=== PATIENT | male | born 1955 | race Asian ===

== ENCOUNTER 2020-05-18 20:44 | Inpatient (IN) | payer SELFPAY ==
[2020-05-18] MEDS ORDERED: methylPREDNISolone Sod Succinate 125 MG/2 ML INJ IV ONE (22:35)
[2020-05-18] MEDS ORDERED: ASPIRIN 81 MG TAB CHEW PO ONE (22:35)
[2020-05-18] MEDS ORDERED: ALBUTEROL 2.5 MG/3 ML NEBU IH ONE (22:35)
[2020-05-18] MEDS ORDERED: IPRATROPIUM/ALBUTEROL SULFATE 3 ML AMPUL.NEB IH ONE (22:35)
[2020-05-18] MEDS ORDERED: dexAMETHasone 20 MG/5 ML VIAL IV ONE (23:18)
[2020-05-18 23:33] LABS: Basophils # (Auto) 0.1 K/mm3 (0.0-0.1); Basophils % (Auto) 0.4 % (0.0-1.8); Eosinophils # (Auto) 0.1 K/mm3 (0.0-0.4); Eosinophils % (Auto) 0.4 % (0.0-4.3); Hematocrit 36.8 % (35.5-45.6); Hemoglobin 12.2 gm/dl (11.8-15.2); Lymphocytes # (Auto) 1.4 K/mm3 (1.2-5.4); Lymphocytes % (Auto) 11.4 % (13.4-35.0); Mean Corpuscular HGB Conc 33 % (32-34); Mean Corpuscular Volume 79 fl (84-94); Monocytes # (Auto) 0.9 K/mm3 (0.0-0.8); Monocytes % (Auto) 7.2 % (0.0-7.3); Platelet Count 234 K/mm3 (140-440); Red Blood Count 4.66 M/mm3 (3.65-5.03); Red Cell Distribution Width 15.9 % (13.2-15.2)
[2020-05-18 23:38] LABS: Alanine Aminotransferase 43 units/L (7-56); Albumin 3.9 g/dL (3.9-5); BUN/Creatinine Ratio 16; Blood Urea Nitrogen 23 mg/dL (9-20); Hemolysis Index 4
[2020-05-18] MEDS ORDERED: dexAMETHasone 4 MG/ML VIAL IV ONE (23:40)
[2020-05-18] MEDS ORDERED: AZITHROMYCIN/NS 500 MG/250 ML 500 MG/250 ML BAG IV ONE (23:42)
[2020-05-18] MEDS ORDERED: cefTRIAXone/NS 2 GM/100 ML 2 GM/100 ML BAG IV ONE (23:42)
--- NOTE | 2020-05-18 23:42 | XRay Report ---
CHEST 1 VIEW INDICATION / CLINICAL INFORMATION: dyspnea. COMPARISON: None available. FINDINGS: SUPPORT DEVICES: None. HEART / MEDIASTINUM: No significant abnormality. LUNGS / PLEURA: Mild scattered pulmonary opacities are present bilaterally, slightly more prevalent i n the left lung and right lung base. No pleural effusion. No pneumothorax. ADDITIONAL FINDINGS: No significant additional findings. IMPRESSION: 1. Scattered bilateral pulmonary opacities worrisome for multifocal viral pneumonia. Please correlate clinically. Signer Name: Christie Lane MD Signed: 05/18/2020 11:38 PM Workstation Name: [id number]
[2020-05-18 23:48] LABS: INR 1.16 (0.87-1.13)
--- NOTE | 2020-05-18 23:48 | Emergency Department Report ---
ED Shortness of Breath HPI - General Chief Complaint: Dyspnea/Respdistress Stated Complaint: SOB Time Seen by Provider: 05/18/20 23:15 Source: patient Mode of arrival: Ambulatory Limitations: No Limitations - History of Present Illness Initial Comments: 65-year-old male with a past medical history hypertension, diabetes, elevated cholesterol presents to the hospital with complaints of shortness of breath for last 2 days. Patient denies cough or fever or known Covid exposure. He also denies loss of sense of taste or smell. He did take a Covid test 2 days ago but does not yet have the results. Room air saturation in triage 87%. He denies chronic pulmonary or cardiac disease - Related Data Allergies Allergy/AdvReac Type Severity Reaction Status Date / Time No Known Allergies Allergy Unverified 05/18/20 22:38 ED Review of Systems ROS: Stated complaint: SOB Other details as noted in HPI Comment: All other systems reviewed and negative ED Past Medical Hx - Past Medical History Previous Medical History?: Yes Hx Hypertension: Yes Hx Diabetes: Yes Additional medical history: High Cholesterol - Surgical History Past Surgical History?: No - Social History Smoking Status: Never Smoker Substance Use Type: None ED Physical Exam - General Limitations: No Limitations - Other Other exam information: General: No acute distress Head: Atraumatic Eyes: normal appearance ENT: Moist mucous membranes Neck: Normal appearance, no midline tenderness Chest: Mild bilateral crackles sound right greater than left, no tachypnea or accessory muscle use CV: Mild tachycardia regular rhythm Abdomen: Soft, normal bowel sounds, nontender, nondistended, no rebound or guarding Back: Normal inspection Extremity: Normal inspection, full range of motion Neuro: Alert O x 3, no facial asymmetry, speech clear, no gross motor sensory deficit Psych: Appropriate behavior Skin: No rash ED Course Vital Signs 05/18/20 22:30 Temperature 98.2 F Pulse Rate 105 H Respiratory 16 Rate Blood Pressure 153/61 O2 Sat by Pulse 87 Oximetry ED Medical Decision Making - Lab Data Result diagrams: 05/18/20 22:41 05/18/20 22:41 Lab Results 05/18/20 05/18/20 05/18/20 Range/Units 22:41 22:41 22:41 WBC 12.2 H (4.5-11.0) K/mm3 RBC 4.66 (3.65-5.03) M/mm3 Hgb 12.2 (11.8-15.2) gm/dl Hct 36.8 (35.5-45.6) % MCV 79 L (84-94) fl MCH 26 L (28-32) pg MCHC 33 (32-34) % RDW 15.9 H (13.2-15.2) % Plt Count 234 (140-440) K/mm3 Lymph % (Auto) 11.4 L (13.4-35.0) % [place] % (Auto) 7.2 (0.0-7.3) % Eos % (Auto) 0.4 (0.0-4.3) % Baso % (Auto) 0.4 (0.0-1.8) % Lymph # (Auto) 1.4 (1.2-5.4) K/mm3 [place] # (Auto) 0.9 H (0.0-0.8) K/mm3 Eos # (Auto) 0.1 (0.0-0.4) K/mm3 Baso # (Auto) 0.1 (0.0-0.1) K/mm3 Seg Neutrophils % 80.6 H (40.0-70.0) % Seg Neutrophils # 9.8 H (1.8-7.7) K/mm3 PT 14.6 (12.2-14.9) Sec. INR 1.16 H (0.87-1.13) APTT 36.5 (24.2-36.6) Sec. Sodium 136 L (137-145) mmol/L Potassium 5.0 (3.6-5.0) mmol/L Chloride 96.1 L (98-107) mmol/L Carbon Dioxide 23 (22-30) mmol/L Anion Gap 22 mmol/L BUN 23 H (9-20) mg/dL Creatinine 1.4 H (0.8-1.3) mg/dL Estimated GFR 51 ml/min BUN/Creatinine Ratio 16 % Glucose 109 H (75-100) mg/dL Calcium 9.0 (8.4-10.2) mg/dL Total Bilirubin 2.50 H (0.1-1.2) mg/dL AST 53 H (5-40) units/L ALT 43 (7-56) units/L Alkaline Phosphatase 88 (35-129) units/L Troponin T < 0.010 (0.00-0.029) ng/mL NT-Pro-B Natriuret Pep 38.27 (0-900) pg/mL Total Protein 7.2 (6.3-8.2) g/dL Albumin 3.9 (3.9-5) g/dL Albumin/Globulin Ratio 1.2 % - EKG Data -: EKG Interpreted by Me EKG shows normal: sinus rhythm, ST-T waves (No STEMI) Rate: tachycardia (107) - Radiology Data Radiology results: report reviewed CHEST 1 VIEW INDICATION / CLINICAL INFORMATION: dyspnea. COMPARISON: None available. FINDINGS: SUPPORT DEVICES: None. HEART / MEDIASTINUM: No significant abnormality. LUNGS / PLEURA: Mild scattered pulmonary opacities are present bilaterally, slightly more prevalent in the left lung and right lung base. No pleural effusion. No pneumothorax. ADDITIONAL FINDINGS: No significant additional findings. IMPRESSION: 1. Scattered bilateral pulmonary opacities worrisome for multifocal viral pneumonia. Please correlate clinically. - Medical Decision Making 65-year-old male presents to the hospital with hypoxia and bilateral pulmonary opacities. Patient treated for community-acquired pneumonia as well and was suspected Covid. She received Rocephin, azithromycin, Decadron 10 mg. Nasal cannula supplemental oxygen for hypoxia. provided ID consult ordered. Hospitalist to admit Critical Care Time: Yes Critical care time in (mins) excluding proc time.: 35 Critical care attestation.: If time is entered above; I have spent that time in minutes in the direct care of this critically ill patient, excluding procedure time. ED Disposition Clinical Impression: Bilateral pneumonia, Suspected COVID-19 virus infection, Hypoxia, Respiratory failure Disposition: OP ADMIT IP TO THIS HOSP Is pt being admited?: Yes Condition: Stable Instructions: Bacterial Pneumonia (ED) Time of Disposition: 00:25 (DR Alvarez/hospitalist)
[2020-05-18 23:49] LABS: Partial Thromboplastin Time 36.5 Sec. (24.2-36.6)
[2020-05-19 00:40] LABS: C-Reactive Protein 13.4 mg/dL (0.00-1.30)
--- NOTE | 2020-05-19 00:45 | History and Physical Report ---
History of Present Illness Date of examination: 05/19/20 Chief complaint: Shortness of breath Respiratory distress History of present illness: 65-year-old male with a past medical history hypertension, diabetes, high cholesterol cholesterol was brought to the emergency room because of shortness of breath for last 2 days. Patient denies any coughing or fever. Patient also denies loss of sense of taste or smell. He did take a Covid test 2 days ago but does not yet have the results. Room air saturation in triage 87%. He denies chronic pulmonary or cardiac disease Past History Past Medical History: diabetes, hypertension Medications and Allergies Allergies Allergy/AdvReac Type Severity Reaction Status Date / Time No Known Allergies Allergy Unverified 05/18/20 22:38 Active Meds: Active Medications Dexamethasone (Dexamethasone 4 Mg/Ml Vial) 6 mg IV Q24H JOSUE Famotidine (Famotidine 20 Mg Tab) 20 mg PO BID JOSUE Heparin Sodium (Porcine) (Heparin 5,000 Unit/1 Ml Vial) 5,000 unit SUB-Q Q8HR JOSUE Azithromycin (Zithromax/Ns) 500 mg in 250 mls @ 250 mls/hr IV Q24H JOSUE; Protocol Review of Systems Constitutional: fatigue Cardiovascular: shortness of breath Respiratory: shortness of breath Exam - Constitutional Vitals: Temp Pulse Resp BP Pulse Ox 99 F 95 H 23 128/63 95 05/19/20 00:29 05/19/20 00:29 05/19/20 00:29 05/19/20 00:29 05/19/20 00:29 General appearance: Present: mild distress - EENT Eyes: Present: PERRL ENT: hearing intact, clear oral mucosa - Neck Neck: Present: supple, normal ROM - Respiratory Respiratory effort: normal, labored Respiratory: bilateral: CTA, diminished - Cardiovascular Heart Sounds: Present: S1 & S2. Absent: rub, click - Extremities Extremities: pulses symmetrical, No edema Peripheral Pulses: within normal limits - Abdominal General gastrointestinal: Present: soft, non-tender, non-distended, normal bowel sounds Male genitourinary: Present: normal - Integumentary Integumentary: Present: clear, warm, dry - Musculoskeletal Musculoskeletal: gait normal, strength equal bilaterally - Psychiatric Psychiatric: appropriate mood/affect, intact judgment & insight - Neurologic Neurologic: CNII-XII intact, moves all extremities HEART Score - HEART Score Troponin: Troponin T < 0.010 ng/mL (0.00-0.029) 05/18/20 22:41 Results - Labs CBC & Chem 7: 05/18/20 22:41 05/18/20 23:52 Labs: Laboratory Last Values WBC 12.2 K/mm3 (4.5-11.0) H 05/18/20 22:41 RBC 4.66 M/mm3 (3.65-5.03) 05/18/20 22:41 Hgb 12.2 gm/dl (11.8-15.2) 05/18/20 22:41 Hct 36.8 % (35.5-45.6) 05/18/20 22:41 MCV 79 fl (84-94) L 05/18/20 22:41 MCH 26 pg (28-32) L 05/18/20 22:41 MCHC 33 % (32-34) 05/18/20 22:41 RDW 15.9 % (13.2-15.2) H 05/18/20 22:41 Plt Count 234 K/mm3 (140-440) 05/18/20 22:41 Lymph % (Auto) 11.4 % (13.4-35.0) L 05/18/20 22:41 [place] % (Auto) 7.2 % (0.0-7.3) 05/18/20 22:41 Eos % (Auto) 0.4 % (0.0-4.3) 05/18/20 22:41 Baso % (Auto) 0.4 % (0.0-1.8) 05/18/20 22:41 Lymph # (Auto) 1.4 K/mm3 (1.2-5.4) 05/18/20 22:41 [place] # (Auto) 0.9 K/mm3 (0.0-0.8) H 05/18/20 22:41 Eos # (Auto) 0.1 K/mm3 (0.0-0.4) 05/18/20 22:41 Baso # (Auto) 0.1 K/mm3 (0.0-0.1) 05/18/20 22:41 Seg Neutrophils % 80.6 % (40.0-70.0) H 05/18/20 22:41 Seg Neutrophils # 9.8 K/mm3 (1.8-7.7) H 05/18/20 22:41 PT 14.6 Sec. (12.2-14.9) 05/18/20 22:41 INR 1.16 (0.87-1.13) H 05/18/20 22:41 APTT 36.5 Sec. (24.2-36.6) 05/18/20 22:41 D-Dimer 856.48 ng/mlDDU (0-234) H 05/18/20 23:52 Sodium 136 mmol/L (137-145) L 05/18/20 22:41 Potassium 5.0 mmol/L (3.6-5.0) 05/18/20 22:41 Chloride 96.1 mmol/L (98-107) L 05/18/20 22:41 Carbon Dioxide 23 mmol/L (22-30) 05/18/20 22:41 Anion Gap 22 mmol/L 05/18/20 22:41 BUN 23 mg/dL (9-20) H 05/18/20 22:41 Creatinine 1.4 mg/dL (0.8-1.3) H 05/18/20 22:41 Estimated GFR 51 ml/min 05/18/20 22:41 BUN/Creatinine Ratio 16 % 05/18/20 22:41 Glucose 109 mg/dL (75-100) H 05/18/20 23:52 Calcium 9.0 mg/dL (8.4-10.2) 05/18/20 22:41 Total Bilirubin 2.50 mg/dL (0.1-1.2) H 05/18/20 22:41 AST 53 units/L (5-40) H 05/18/20 22:41 ALT 43 units/L (7-56) 05/18/20 22:41 Alkaline Phosphatase 88 units/L (35-129) 05/18/20 22:41 Lactate Dehydrogenase 333 units/L (91-180) H 05/18/20 23:52 Troponin T < 0.010 ng/mL (0.00-0.029) 05/18/20 22:41 C-Reactive Protein 13.40 mg/dL (0.00-1.30) H 05/18/20 23:52 NT-Pro-B Natriuret Pep 38.27 pg/mL (0-900) 05/18/20 22:41 Total Protein 7.2 g/dL (6.3-8.2) 05/18/20 22:41 Albumin 3.9 g/dL (3.9-5) 05/18/20 22:41 Albumin/Globulin Ratio 1.2 % 05/18/20 22:41 - Imaging and Cardiology Chest x-ray: image reviewed Villalobos/IV: IV Catheter Type [Right INT / Saline Lock Antecubital] Assessment and Plan - Patient Problems (1) Bilateral pneumonia Current Visit: Yes Status: Acute Plan to address problem: Admit the patient to the medical telemetry. Put the patient on pneumonia pathway. Oxygen by nasal cannula 3 L/min. DuoNeb by nebulizer every 4 hours as needed. Decadron 6 mg IV daily. Rocephin 1 g IV daily. Zithromax 500 mg IV daily. Follow the Covid inflammatory markers. Blood cultures sputum culture. We also consult infectious disease for evaluation of remdesivir. Recheck CBC BMP in the morning. (2) Hypoxia Current Visit: Yes Status: Acute Plan to address problem: Oxygen by nasal cannula 3 L/min. DuoNeb by nebulizer every 4 hours as needed. Decadron 6 mg IV daily. Rocephin 1 g IV daily. Zithromax 500 mg IV daily. Follow the Covid inflammatory markers. Blood cultures sputum culture. (3) Suspected COVID-19 virus infection Current Visit: Yes Status: Acute Plan to address problem: Oxygen by nasal cannula 3 L/min. DuoNeb by nebulizer every 4 hours as needed. Decadron 6 mg IV daily. Rocephin 1 g IV daily. Zithromax 500 mg IV daily. Follow the Covid inflammatory markers. Blood cultures sputum culture. We also consult infectious disease for evaluation of remdesivir. Recheck CBC BMP in the morning.
[2020-05-19] MEDS ORDERED: DEXTROSE 50% IN WATER (25GM) 50 ML SYRINGE IV PRN ×2 (00:50→13:00)
[2020-05-19] MEDS: HEPARIN 5,000 UNIT/1 ML VIAL SUB-Q SCH ×4 (00:53→21:41)
[2020-05-19] MEDS: FAMOTIDINE 20 MG TAB PO SCH ×4 (01:37→21:40)
[2020-05-19] MEDS ORDERED: INSULIN LISPRO 100 UNIT/ML SUB-Q ONE (08:00)
[2020-05-19] MEDS: INSULIN LISPRO 100 UNIT/ML VIAL 3 mL SUB-Q SCH ×4 (08:14→23:26)
[2020-05-19 11:44] LABS: Hematocrit 37.8 % (35.5-45.6); Hemoglobin 12.2 gm/dl (11.8-15.2); Mean Corpuscular HGB Conc 32 % (32-34); Mean Corpuscular Volume 81 fl (84-94); Platelet Count 214 K/mm3 (140-440); Red Blood Count 4.69 M/mm3 (3.65-5.03)
--- NOTE | 2020-05-19 12:01 | Consultation ---
History of Present Illness - Reason for Consult Consult date: 05/19/20 - History of Present Illness 65-year-old man past medical history hypertension, diabetes, high cholesterol presented to the hospital complaining of shortness of breath. This began approximately 2 days prior to admission has been progressive in onset. He denies any other symptoms. He was tested for Covid as an outpatient, however those tests are still pending. He was found to be hypoxic to 87% on room air in the emergency room. Afebrile with a white count 12.12. Procalcitonin 0.41, GFR is 51. Ferritin is normal while CRP is elevated. Blood cultures currently pending. Imaging personally reviewed: Chest x-ray: Scattered bilateral pulmonary opacities Review of systems: Deferred due to PPE conservation strategy. Past History Past Medical History: diabetes, hypertension Medications and Allergies Allergies Allergy/AdvReac Type Severity Reaction Status Date / Time No Known Allergies Allergy Verified 05/19/20 00:44 Home Medications Medication Instructions Recorded Confirmed Last Taken Type Glimepiride [Amaryl] 2 mg PO QDAY 05/19/20 05/19/20 Unknown History Metformin HCl [metFORMIN] 1,000 mg PO BID 05/19/20 05/19/20 Unknown History Simvastatin 40 mg PO QDAY 05/19/20 05/19/20 Unknown History amLODIPine [Norvasc] 10 mg PO DAILY 05/19/20 05/19/20 Unknown History hydroCHLOROthiazide 12.5 mg PO QDAY 05/19/20 05/19/20 Unknown History [Hydrochlorothiazide] lisinopriL [Zestril TAB] 40 mg PO QDAY 05/19/20 05/19/20 Unknown History Active Meds: Active Medications Dexamethasone (Dexamethasone 4 Mg/Ml Vial) 6 mg IV Q24H [facility] Dextrose (Dextrose 50% In Water (25gm) 50 Ml Syringe) 50 ml IV Q30MIN PRN; Protocol PRN Reason: Hypoglycemia Famotidine (Famotidine 20 Mg Tab) 20 mg PO BID [facility] Last Admin: 05/19/20 09:36 Dose: Not Given Documented by: Heparin Sodium (Porcine) (Heparin 5,000 Unit/1 Ml Vial) 5,000 unit SUB-Q Q8HR JOSUE Stop: 05/22/20 23:59 Last Admin: 05/19/20 05:43 Dose: Not Given Documented by: Azithromycin (Zithromax/Ns) 500 mg in 250 mls @ 250 mls/hr IV Q24H JOSUE; Protocol Ceftriaxone Sodium (Rocephin/Ns 2 Gm/100 Ml) 2 gm in 100 mls @ 200 mls/hr IV Q24H JOSUE; Protocol Insulin Human Lispro (Insulin Lispro 100 Unit/Ml Vial 3 Ml) 0 unit SUB-Q ACHS JOSUE; Protocol Last Admin: 05/19/20 08:14 Dose: 4 unit Documented by: Physical Examination - Physical Exam Narrative exam: Physical exam deferred due to PPE conservation strategy. Please refer to primary team's note. - Constitutional Vitals: Vital Signs Temp Pulse Resp BP Pulse Ox 99 F 64 28 H 113/62 96 05/19/20 00:29 05/19/20 06:00 05/19/20 06:00 05/19/20 06:00 05/19/20 06:00 Temperature -Last 24 Hours Temperature 99 F Temperature 98.2 F Results - Labs CBC & Chem 7: 05/18/20 22:41 05/18/20 23:52 Labs: Abnormal lab results 05/18/20 05/18/20 05/18/20 Range/Units 22:41 22:41 22:41 WBC 12.2 H (4.5-11.0) K/mm3 MCV 79 L (84-94) fl MCH 26 L (28-32) pg RDW 15.9 H (13.2-15.2) % Lymph % (Auto) 11.4 L (13.4-35.0) % [place] # (Auto) 0.9 H (0.0-0.8) K/mm3 Seg Neutrophils % 80.6 H (40.0-70.0) % Seg Neutrophils # 9.8 H (1.8-7.7) K/mm3 INR 1.16 H (0.87-1.13) D-Dimer (0-234) ng/mlDDU Sodium 136 L (137-145) mmol/L Chloride 96.1 L (98-107) mmol/L BUN 23 H (9-20) mg/dL Creatinine 1.4 H (0.8-1.3) mg/dL Glucose 109 H (75-100) mg/dL POC Glucose (70-105) mg/dL Total Bilirubin 2.50 H (0.1-1.2) mg/dL AST 53 H (5-40) units/L Lactate Dehydrogenase (91-180) units/L C-Reactive Protein (0.00-1.30) mg/dL 05/18/20 05/18/20 05/19/20 Range/Units 23:52 23:52 08:02 WBC (4.5-11.0) K/mm3 MCV (84-94) fl MCH (28-32) pg RDW (13.2-15.2) % Lymph % (Auto) (13.4-35.0) % [place] # (Auto) (0.0-0.8) K/mm3 Seg Neutrophils % (40.0-70.0) % Seg Neutrophils # (1.8-7.7) K/mm3 INR (0.87-1.13) D-Dimer 856.48 H (0-234) ng/mlDDU Sodium (137-145) mmol/L Chloride (98-107) mmol/L BUN (9-20) mg/dL Creatinine (0.8-1.3) mg/dL Glucose 109 H (75-100) mg/dL POC Glucose 252 H (70-105) mg/dL Total Bilirubin (0.1-1.2) mg/dL AST (5-40) units/L Lactate Dehydrogenase 333 H (91-180) units/L C-Reactive Protein 13.40 H (0.00-1.30) mg/dL 05/19/20 Range/Units 11:17 WBC (4.5-11.0) K/mm3 MCV (84-94) fl MCH (28-32) pg RDW (13.2-15.2) % Lymph % (Auto) (13.4-35.0) % [place] # (Auto) (0.0-0.8) K/mm3 Seg Neutrophils % (40.0-70.0) % Seg Neutrophils # (1.8-7.7) K/mm3 INR (0.87-1.13) D-Dimer (0-234) ng/mlDDU Sodium (137-145) mmol/L Chloride (98-107) mmol/L BUN (9-20) mg/dL Creatinine (0.8-1.3) mg/dL Glucose (75-100) mg/dL POC Glucose 334 H (70-105) mg/dL Total Bilirubin (0.1-1.2) mg/dL AST (5-40) units/L Lactate Dehydrogenase (91-180) units/L C-Reactive Protein (0.00-1.30) mg/dL Assessment and Plan Cultures: Blood culture pending Covid pending A/P: 65-year-old man past medical history hypertension, diabetes, high cholesterol #Bilateral pneumonia/Covid PUI: Awaiting test results. Inflammatory markers are currently elevated. D-dimer is high. Procalcitonin slightly elevated. #SINA: Renally dose medications. Unclear baseline. #Diabetes: tight glycemic control for best outcomes. Recs: -Follow-up Covid test results -If becomes hypoxic recommend dexamethasone. -If COVID-19 testing positive and requiring oxygen supplementation recommend starting remdesivir -Follow renal function -Consider lower extremity Dopplers due to elevated D-dimer -Anticoagulation per protocol Thank you for the consult, we will continue to follow. Dr. Aggarwal taking over tomorrow MD [facility] O: [phone] F: [phone]
[2020-05-19 12:10] LABS: BUN/Creatinine Ratio 23; Blood Urea Nitrogen 27 mg/dL (9-20); Calcium 8.8 mg/dL (8.4-10.2); Hemolysis Index 7
[2020-05-19 12:40] LABS: Band Neutrophils # (Manual) 0.1 K/mm3; Total Cells Counted 100
[2020-05-19 12:41] LABS: Large Platelets Few; Platelet Estimate Consistent w Auto; RBC Morphology Normal
[2020-05-19] MEDS ORDERED: SODIUM POLYSTYRENE 15 GM/60 ML ORAL LIQD PO ONE (14:00)
[2020-05-19] MEDS ORDERED: ACETAMINOPHEN 325 MG TAB PO PRN ×2 (17:39→18:49)
[2020-05-19] MEDS: AZITHROMYCIN/NS 500 MG/250 ML 500 MG/250 ML BAG IV SCH (21:39)
[2020-05-19] MEDS: dexAMETHasone 4 MG/ML VIAL IV SCH (21:40)
[2020-05-19] MEDS: INSULIN GLARGINE 100 UNITS/ML SUB-Q SCH (23:26)
[2020-05-19] MEDS: cefTRIAXone/NS 2 GM/100 ML 2 GM/100 ML BAG IV SCH (23:32)
[2020-05-20] MEDS: HEPARIN 5,000 UNIT/1 ML VIAL SUB-Q SCH ×3 (05:46→21:00)
[2020-05-20 06:30] LABS: Basophils % (Auto) 0.3 % (0.0-1.8); Eosinophils % (Auto) 0.1 % (0.0-4.3); Hematocrit 34.2 % (35.5-45.6); Hemoglobin 11.2 gm/dl (11.8-15.2); Lymphocytes # (Auto) 0.6 K/mm3 (1.2-5.4); Lymphocytes % (Auto) 6.3 % (13.4-35.0); Mean Corpuscular HGB Conc 33 % (32-34); Mean Corpuscular Volume 80 fl (84-94); Monocytes # (Auto) 0.6 K/mm3 (0.0-0.8); Monocytes % (Auto) 6.3 % (0.0-7.3); Platelet Count 232 K/mm3 (140-440); Red Blood Count 4.28 M/mm3 (3.65-5.03)
[2020-05-20 06:45] LABS: BUN/Creatinine Ratio 29; Blood Urea Nitrogen 35 mg/dL (9-20); Calcium 8.2 mg/dL (8.4-10.2); Hemolysis Index 5
--- NOTE | 2020-05-20 09:24 | Progress Note ---
Assessment and Plan Assessment and plan: Acute hypoxic respiratory failure -Patient is on oxygen support COVID-19 infection -ID was consulted and patient is on dexamethasone Diabetes mellitus with hyperglycemia -Basal and sliding scale insulin, ADA diet, Accu-Chek Elevated D-dimer -Patient is on anticoagulation based on hospital protocol -We will do bilateral lower extremity Doppler dispopsition; continue inpatient care. We will do 6-minute walk tomorrow History Interval history: Patient was seen and evaluated this morning Patient is on 3 L of oxygen Patient become short of breath with minimal exertion Hospitalist Physical - Physical exam Narrative exam: Not in cardiopulmonary distress. The patient appeared well nourished and normally developed. Vital signs as documented. Head exam is unremarkable. No scleral icterus . Neck is without jugular venous distension, thyromegaly, or carotid bruits. Lungs are clear to auscultation. Cardiac exam reveals regular rate and Rhythm. Abdominal exam reveals normal bowel sounds, nontender, no organomegaly. Extremities are nonedematous and both femoral and pedal pulses are normal. POSITION CLASSIFIER: Alert and oriented 3. No focal weakness. - Constitutional Vitals: Temp Pulse Resp BP Pulse Ox 98.0 F 83 18 116/68 90 05/20/20 04:29 05/20/20 04:29 05/20/20 04:29 05/20/20 04:29 05/20/20 04:29 General appearance: Present: mild distress HEART Score - HEART Score Troponin: Troponin T < 0.010 ng/mL (0.00-0.029) 05/18/20 22:41 Results - Labs CBC & Chem 7: 05/20/20 05:19 05/20/20 05:19 Labs: Laboratory Last Values WBC 9.3 K/mm3 (4.5-11.0) 05/20/20 05:19 RBC 4.28 M/mm3 (3.65-5.03) 05/20/20 05:19 Hgb 11.2 gm/dl (11.8-15.2) L 05/20/20 05:19 Hct 34.2 % (35.5-45.6) L 05/20/20 05:19 MCV 80 fl (84-94) L 05/20/20 05:19 MCH 26 pg (28-32) L 05/20/20 05:19 MCHC 33 % (32-34) 05/20/20 05:19 RDW 16.0 % (13.2-15.2) H 05/20/20 05:19 Plt Count 232 K/mm3 (140-440) 05/20/20 05:19 Lymph % (Auto) 6.3 % (13.4-35.0) L 05/20/20 05:19 [place] % (Auto) 6.3 % (0.0-7.3) 05/20/20 05:19 Eos % (Auto) 0.1 % (0.0-4.3) 05/20/20 05:19 Baso % (Auto) 0.3 % (0.0-1.8) 05/20/20 05:19 Lymph # (Auto) 0.6 K/mm3 (1.2-5.4) L 05/20/20 05:19 [place] # (Auto) 0.6 K/mm3 (0.0-0.8) 05/20/20 05:19 Eos # (Auto) 0.0 K/mm3 (0.0-0.4) 05/20/20 05:19 Baso # (Auto) 0.0 K/mm3 (0.0-0.1) 05/20/20 05:19 Add Manual Diff Complete 05/19/20 10:51 Total Counted 100 05/19/20 10:51 Seg Neutrophils % 87.0 % (40.0-70.0) H 05/20/20 05:19 Seg Neuts % (Manual) 95.0 % (40.0-70.0) H 05/19/20 10:51 Band Neutrophils % 1.0 % 05/19/20 10:51 Lymphocytes % (Manual) 3.0 % (13.4-35.0) L 05/19/20 10:51 Monocytes % (Manual) 1.0 % (0.0-7.3) 05/19/20 10:51 Nucleated RBC % Not Reportable 05/19/20 10:51 Seg Neutrophils # 8.1 K/mm3 (1.8-7.7) H 05/20/20 05:19 Seg Neutrophils # Man 10.2 K/mm3 (1.8-7.7) H 05/19/20 10:51 Band Neutrophils # 0.1 K/mm3 05/19/20 10:51 Lymphocytes # (Manual) 0.3 K/mm3 (1.2-5.4) L 05/19/20 10:51 Abs React Lymphs (Man) 0.0 K/mm3 05/19/20 10:51 Monocytes # (Manual) 0.1 K/mm3 (0.0-0.8) 05/19/20 10:51 Eosinophils # (Manual) 0.0 K/mm3 (0.0-0.4) 05/19/20 10:51 Basophils # (Manual) 0.0 K/mm3 (0.0-0.1) 05/19/20 10:51 Metamyelocytes # 0.0 K/mm3 05/19/20 10:51 Myelocytes # 0.0 K/mm3 05/19/20 10:51 Promyelocytes # 0.0 K/mm3 05/19/20 10:51 Blast Cells # 0.0 K/mm3 05/19/20 10:51 WBC Morphology Not Reportable 05/19/20 10:51 Hypersegmented Neuts Not Reportable 05/19/20 10:51 Hyposegmented Neuts Not Reportable 05/19/20 10:51 Hypogranular Neuts Not Reportable 05/19/20 10:51 Smudge Cells Not Reportable 05/19/20 10:51 Toxic Granulation Not Reportable 05/19/20 10:51 Toxic Vacuolation Not Reportable 05/19/20 10:51 Dohle Bodies Not Reportable 05/19/20 10:51 Pelger-Huet Anomaly Not Reportable 05/19/20 10:51 Anabela Rods Not Reportable 05/19/20 10:51 Platelet Estimate Consistent w auto 05/19/20 10:51 Clumped Platelets Not Reportable 05/19/20 10:51 Plt Clumps, EDTA Not Reportable 05/19/20 10:51 Large Platelets Few 05/19/20 10:51 Giant Platelets Not Reportable 05/19/20 10:51 Platelet Satelliting Not Reportable 05/19/20 10:51 Plt Morphology Comment Not Reportable 05/19/20 10:51 RBC Morphology Normal 05/19/20 10:51 Dimorphic RBCs Not Reportable 05/19/20 10:51 Polychromasia Not Reportable 05/19/20 10:51 Hypochromasia Not Reportable 05/19/20 10:51 Poikilocytosis Not Reportable 05/19/20 10:51 Anisocytosis Not Reportable 05/19/20 10:51 Microcytosis Not Reportable 05/19/20 10:51 Macrocytosis Not Reportable 05/19/20 10:51 Spherocytes Not Reportable 05/19/20 10:51 Pappenheimer Bodies Not Reportable 05/19/20 10:51 Sickle Cells Not Reportable 05/19/20 10:51 Target Cells Not Reportable 05/19/20 10:51 Tear Drop Cells Not Reportable 05/19/20 10:51 Ovalocytes Not Reportable 05/19/20 10:51 Helmet Cells Not Reportable 05/19/20 10:51 [place] Bodies Not Reportable 05/19/20 10:51 [place] Rings Not Reportable 05/19/20 10:51 [place] Cells Not Reportable 05/19/20 10:51 Bite Cells Not Reportable 05/19/20 10:51 Crenated Cell Not Reportable 05/19/20 10:51 Elliptocytes Not Reportable 05/19/20 10:51 Acanthocytes (Spur) Not Reportable 05/19/20 10:51 Rouleaux Not Reportable 05/19/20 10:51 Hemoglobin C Crystals Not Reportable 05/19/20 10:51 Schistocytes Not Reportable 05/19/20 10:51 Malaria parasites Not Reportable 05/19/20 10:51 Luis Bodies Not Reportable 05/19/20 10:51 Hem Pathologist Commnt No 05/19/20 10:51 PT 14.6 Sec. (12.2-14.9) 05/18/20 22:41 INR 1.16 (0.87-1.13) H 05/18/20 22:41 APTT 36.5 Sec. (24.2-36.6) 05/18/20 22:41 D-Dimer 856.48 ng/mlDDU (0-234) H 05/18/20 23:52 Sodium 134 mmol/L (137-145) L 05/20/20 05:19 Potassium 5.1 mmol/L (3.6-5.0) H 05/20/20 05:19 Chloride 99.5 mmol/L (98-107) 05/20/20 05:19 Carbon Dioxide 21 mmol/L (22-30) L 05/20/20 05:19 Anion Gap 19 mmol/L 05/20/20 05:19 BUN 35 mg/dL (9-20) H 05/20/20 05:19 Creatinine 1.2 mg/dL (0.8-1.3) 05/20/20 05:19 Estimated GFR > 60 ml/min 05/20/20 05:19 BUN/Creatinine Ratio 29 % 05/20/20 05:19 Glucose 262 mg/dL (75-100) H 05/20/20 05:19 POC Glucose 155 mg/dL (70-105) H 05/19/20 22:02 Hemoglobin A1c 8.0 % (4-6) H 05/19/20 10:51 Calcium 8.2 mg/dL (8.4-10.2) L 05/20/20 05:19 Ferritin 162.1 ng/mL (30.0-300.0) 05/18/20 23:52 Total Bilirubin 2.50 mg/dL (0.1-1.2) H 05/18/20 22:41 AST 53 units/L (5-40) H 05/18/20 22:41 ALT 43 units/L (7-56) 05/18/20 22:41 Alkaline Phosphatase 88 units/L (35-129) 05/18/20 22:41 Lactate Dehydrogenase 333 units/L (91-180) H 05/18/20 23:52 Troponin T < 0.010 ng/mL (0.00-0.029) 05/18/20 22:41 C-Reactive Protein 13.40 mg/dL (0.00-1.30) H 05/18/20 23:52 NT-Pro-B Natriuret Pep 38.27 pg/mL (0-900) 05/18/20 22:41 Total Protein 7.2 g/dL (6.3-8.2) 05/18/20 22:41 Albumin 3.9 g/dL (3.9-5) 05/18/20 22:41 Albumin/Globulin Ratio 1.2 % 05/18/20 22:41 Procalcitonin 0.41 ng/mL (<0.15) 05/18/20 23:52 Coronavirus (PCR) Positive (Negative) A 05/19/20 Unknown Microbiology: Microbiology 05/18/20 23:47 Peripheral/Venous Blood Culture - Preliminary NO GROWTH AFTER 24 HOURS 05/18/20 23:52 Peripheral/Venous Blood Culture - Preliminary NO GROWTH AFTER 24 HOURS Villalobos/IV: Voiding Method Urinal IV Catheter Type [Right INT / Saline Lock Antecubital] Active Medications - Current Medications Current Medications: Generic Name Dose Route Start Last Admin Trade Name Freq PRN Reason Stop Dose Admin Acetaminophen 650 mg 05/19/20 18:49 Acetaminophen 325 Mg Tab PO Q4H PRN Pain MILD(1-3)/Fever >100.5/ZHANG Dexamethasone 6 mg 05/19/20 22:00 05/19/20 21:40 Dexamethasone 4 Mg/Ml Vial IV 05/28/20 22:01 6 mg Q24H JOSUE Administration Dextrose 50 ml 05/19/20 13:00 Dextrose 50% In Water (25gm) 50 Ml Syringe IV Q30MIN PRN Hypoglycemia Protocol Famotidine 20 mg 05/19/20 01:00 05/19/20 21:40 Famotidine 20 Mg Tab PO 20 mg BID JOSUE Administration Heparin Sodium (Porcine) 5,000 unit 05/19/20 00:45 05/20/20 05:46 Heparin 5,000 Unit/1 Ml Vial SUB-Q 05/22/20 23:59 5,000 unit Q8HR JOSUE Administration Azithromycin 500 mg in 250 mls @ 250 mls/hr 05/19/20 22:00 05/19/20 21:39 Zithromax/Ns IV 250 mls/hr Q24H JOSUE Administration Protocol Ceftriaxone Sodium 2 gm in 100 mls @ 200 mls/hr 05/19/20 22:00 05/19/20 23:32 Rocephin/Ns 2 Gm/100 Ml IV 200 mls/hr Q24H JOSUE Administration Protocol Insulin Glargine 10 units 05/19/20 22:00 05/19/20 23:26 Insulin Glargine 100 Units/Ml SUB-Q Not Given QHS [facility] Insulin Human Lispro 0 unit 05/19/20 07:30 05/19/20 23:26 Insulin Lispro 100 Unit/Ml Vial 3 Ml SUB-Q Not Given ACHS [facility] Protocol Nutrition/Malnutrition Assess - Dietary Evaluation Nutrition/Malnutrition Findings: Nutrition Notes Start: 05/19/20 10:17 Freq: Status: Active Protocol: Document 05/19/20 10:17 AB (Rec: 05/19/20 10:19 AB [id number]) Co-Sign 05/19/20 10:17 LP Nutrition Notes Need for Assessment generated from: MD Order,Education Initial or Follow up Brief Note Current Diagnosis Diabetes,Hypertension, Respiratory Failure Other Pertinent Diagnosis COVID-19 PUI, pneumonia Current Diet No diet ordered Subjective/Other Information MD order for diet education. Pt on hold in ED. Nutrition Intervention Follow-Up By: 05/23/20 Additional Comments F/U for full assessment and diet education needs
[2020-05-20] MEDS: INSULIN LISPRO 100 UNIT/ML VIAL 3 mL SUB-Q SCH ×4 (09:44→23:51)
[2020-05-20] MEDS: FAMOTIDINE 20 MG TAB PO SCH ×2 (09:45→21:00)
[2020-05-20] MEDS: dexAMETHasone 4 MG/ML VIAL IV SCH (21:00)
[2020-05-20] MEDS: AZITHROMYCIN/NS 500 MG/250 ML 500 MG/250 ML BAG IV SCH (21:05)
[2020-05-20] MEDS: cefTRIAXone/NS 2 GM/100 ML 2 GM/100 ML BAG IV SCH (21:05)
[2020-05-20] MEDS: INSULIN GLARGINE 100 UNITS/ML SUB-Q SCH (23:50)
[2020-05-21] MEDS: HEPARIN 5,000 UNIT/1 ML VIAL SUB-Q SCH ×3 (05:14→21:11)
[2020-05-21] MEDS: FAMOTIDINE 20 MG TAB PO SCH ×2 (09:06→21:11)
[2020-05-21] MEDS: INSULIN LISPRO 100 UNIT/ML VIAL 3 mL SUB-Q SCH ×4 (09:06→22:47)
--- NOTE | 2020-05-21 09:53 | Progress Note ---
Assessment and Plan Cultures: Blood culture no growth today Covid positive A/P: 65-year-old man past medical history hypertension, diabetes, high cholesterol #Severe COVID-19 pneumonia: Inflammatory markers are currently elevated. D- dimer is high. Procalcitonin slightly elevated. #Acute hypoxia: O2 sats dropped to 88%. #SINA: Renally dose medications. Improving. #Diabetes: tight glycemic control for best outcomes. Recs: -Start remdesivir for 5 days -Continue dexamethasone for 10 days -Other inflammatory markers and repeat procalcitonin today -Follow renal function -Anticoagulation per protocol -Continue ceftriaxone for 5 days, azithromycin for 3 days given elevated procalcitonin however likely secondary to chronic renal failure Shelley Aggarwal MD [facility] ([facility]) Office [phone] Subjective Date of service: 05/21/20 Principal diagnosis: COVID-19 Interval history: Remains sedated on exertion, sats dropped to 88%. Objective - Exam Narrative Exam: Physical exam deferred to minimize COVID-19 transmission during pandemic. ER and internal medicine physical examination notes reviewed. - Constitutional Vitals: Vital Signs Temp Pulse Resp BP Pulse Ox 97.6 F 74 20 134/77 94 05/20/20 22:42 05/21/20 04:53 05/21/20 04:53 05/21/20 04:53 05/21/20 04:53 Temperature -Last 24 Hours Temperature 97.6 F Temperature 97.6 F Temperature 98.5 F - Labs CBC & Chem 7: 05/20/20 05:19 05/20/20 05:19 Labs: Abnormal lab results 05/20/20 05/20/20 05/20/20 Range/Units 12:07 15:48 22:40 POC Glucose 275 H 147 H 170 H (70-105) mg/dL 05/21/20 Range/Units 07:58 POC Glucose 231 H (70-105) mg/dL
[2020-05-21] MEDS ORDERED: REMDESIVIR 200 MG in SODIUM CHLORIDE 0.9% 250ML 250 ML IV ONE (09:54)
[2020-05-21] MEDS ORDERED: REMDESIVIR 100 MG VIAL IV ONE (10:00)
--- NOTE | 2020-05-21 12:22 | Progress Note ---
Assessment and Plan Assessment and plan: Acute hypoxic respiratory failure -Patient is on oxygen support COVID-19 infection -ID was consulted and patient is on dexamethasone remdesivir Diabetes mellitus with hyperglycemia -Basal and sliding scale insulin, ADA diet, Accu-Chek Elevated D-dimer -Patient is on anticoagulation based on hospital protocol -We will do bilateral lower extremity Doppler dispopsition; continue inpatient care. 6-minute walk was done and his oxygen requirement was 4 L. We will keep the patient in the hospital and will check tomorrow. Patient is uninsured and may be difficult to get oxygen. History Interval history: Patient was seen and evaluated this morning Patient is on 4 L of oxygen Patient become short of breath with minimal exertion Hospitalist Physical - Physical exam Narrative exam: Not in cardiopulmonary distress. The patient appeared well nourished and normally developed. Vital signs as documented. Head exam is unremarkable. No scleral icterus . Neck is without jugular venous distension, thyromegaly, or carotid bruits. Lungs are clear to auscultation. Cardiac exam reveals regular rate and Rhythm. Abdominal exam reveals normal bowel sounds, nontender, no organomegaly. Extremities are nonedematous and both femoral and pedal pulses are normal. [employer]: Alert and oriented 3. No focal weakness. - Constitutional Vitals: Temp Pulse Resp BP Pulse Ox 97.6 F 74 20 134/77 96 05/20/20 22:42 05/21/20 04:53 05/21/20 04:53 05/21/20 04:53 05/21/20 10:00 General appearance: Present: mild distress HEART Score - HEART Score Troponin: Troponin T < 0.010 ng/mL (0.00-0.029) 05/18/20 22:41 Results - Labs CBC & Chem 7: 05/20/20 05:19 05/20/20 05:19 Labs: Laboratory Last Values WBC 9.3 K/mm3 (4.5-11.0) 05/20/20 05:19 RBC 4.28 M/mm3 (3.65-5.03) 05/20/20 05:19 Hgb 11.2 gm/dl (11.8-15.2) L 05/20/20 05:19 Hct 34.2 % (35.5-45.6) L 05/20/20 05:19 MCV 80 fl (84-94) L 05/20/20 05:19 MCH 26 pg (28-32) L 05/20/20 05:19 MCHC 33 % (32-34) 05/20/20 05:19 RDW 16.0 % (13.2-15.2) H 05/20/20 05:19 Plt Count 232 K/mm3 (140-440) 05/20/20 05:19 Lymph % (Auto) 6.3 % (13.4-35.0) L 05/20/20 05:19 [place] % (Auto) 6.3 % (0.0-7.3) 05/20/20 05:19 Eos % (Auto) 0.1 % (0.0-4.3) 05/20/20 05:19 Baso % (Auto) 0.3 % (0.0-1.8) 05/20/20 05:19 Lymph # (Auto) 0.6 K/mm3 (1.2-5.4) L 05/20/20 05:19 [place] # (Auto) 0.6 K/mm3 (0.0-0.8) 05/20/20 05:19 Eos # (Auto) 0.0 K/mm3 (0.0-0.4) 05/20/20 05:19 Baso # (Auto) 0.0 K/mm3 (0.0-0.1) 05/20/20 05:19 Add Manual Diff Complete 05/19/20 10:51 Total Counted 100 05/19/20 10:51 Seg Neutrophils % 87.0 % (40.0-70.0) H 05/20/20 05:19 Seg Neuts % (Manual) 95.0 % (40.0-70.0) H 05/19/20 10:51 Band Neutrophils % 1.0 % 05/19/20 10:51 Lymphocytes % (Manual) 3.0 % (13.4-35.0) L 05/19/20 10:51 Monocytes % (Manual) 1.0 % (0.0-7.3) 05/19/20 10:51 Nucleated RBC % Not Reportable 05/19/20 10:51 Seg Neutrophils # 8.1 K/mm3 (1.8-7.7) H 05/20/20 05:19 Seg Neutrophils # Man 10.2 K/mm3 (1.8-7.7) H 05/19/20 10:51 Band Neutrophils # 0.1 K/mm3 05/19/20 10:51 Lymphocytes # (Manual) 0.3 K/mm3 (1.2-5.4) L 05/19/20 10:51 Abs React Lymphs (Man) 0.0 K/mm3 05/19/20 10:51 Monocytes # (Manual) 0.1 K/mm3 (0.0-0.8) 05/19/20 10:51 Eosinophils # (Manual) 0.0 K/mm3 (0.0-0.4) 05/19/20 10:51 Basophils # (Manual) 0.0 K/mm3 (0.0-0.1) 05/19/20 10:51 Metamyelocytes # 0.0 K/mm3 05/19/20 10:51 Myelocytes # 0.0 K/mm3 05/19/20 10:51 Promyelocytes # 0.0 K/mm3 05/19/20 10:51 Blast Cells # 0.0 K/mm3 05/19/20 10:51 WBC Morphology Not Reportable 05/19/20 10:51 Hypersegmented Neuts Not Reportable 05/19/20 10:51 Hyposegmented Neuts Not Reportable 05/19/20 10:51 Hypogranular Neuts Not Reportable 05/19/20 10:51 Smudge Cells Not Reportable 05/19/20 10:51 Toxic Granulation Not Reportable 05/19/20 10:51 Toxic Vacuolation Not Reportable 05/19/20 10:51 Dohle Bodies Not Reportable 05/19/20 10:51 Pelger-Huet Anomaly Not Reportable 05/19/20 10:51 Anabela Rods Not Reportable 05/19/20 10:51 Platelet Estimate Consistent w auto 05/19/20 10:51 Clumped Platelets Not Reportable 05/19/20 10:51 Plt Clumps, EDTA Not Reportable 05/19/20 10:51 Large Platelets Few 05/19/20 10:51 Giant Platelets Not Reportable 05/19/20 10:51 Platelet Satelliting Not Reportable 05/19/20 10:51 Plt Morphology Comment Not Reportable 05/19/20 10:51 RBC Morphology Normal 05/19/20 10:51 Dimorphic RBCs Not Reportable 05/19/20 10:51 Polychromasia Not Reportable 05/19/20 10:51 Hypochromasia Not Reportable 05/19/20 10:51 Poikilocytosis Not Reportable 05/19/20 10:51 Anisocytosis Not Reportable 05/19/20 10:51 Microcytosis Not Reportable 05/19/20 10:51 Macrocytosis Not Reportable 05/19/20 10:51 Spherocytes Not Reportable 05/19/20 10:51 Pappenheimer Bodies Not Reportable 05/19/20 10:51 Sickle Cells Not Reportable 05/19/20 10:51 Target Cells Not Reportable 05/19/20 10:51 Tear Drop Cells Not Reportable 05/19/20 10:51 Ovalocytes Not Reportable 05/19/20 10:51 Helmet Cells Not Reportable 05/19/20 10:51 Crump-[place] Bodies Not Reportable 05/19/20 10:51 [place] Rings Not Reportable 05/19/20 10:51 [place] Cells Not Reportable 05/19/20 10:51 Bite Cells Not Reportable 05/19/20 10:51 Crenated Cell Not Reportable 05/19/20 10:51 Elliptocytes Not Reportable 05/19/20 10:51 Acanthocytes (Spur) Not Reportable 05/19/20 10:51 Rouleaux Not Reportable 05/19/20 10:51 Hemoglobin C Crystals Not Reportable 05/19/20 10:51 Schistocytes Not Reportable 05/19/20 10:51 Malaria parasites Not Reportable 05/19/20 10:51 Luis Bodies Not Reportable 05/19/20 10:51 Hem Pathologist Commnt No 05/19/20 10:51 PT 14.6 Sec. (12.2-14.9) 05/18/20 22:41 INR 1.16 (0.87-1.13) H 05/18/20 22:41 APTT 36.5 Sec. (24.2-36.6) 05/18/20 22:41 D-Dimer 856.48 ng/mlDDU (0-234) H 05/18/20 23:52 Sodium 134 mmol/L (137-145) L 05/20/20 05:19 Potassium 5.1 mmol/L (3.6-5.0) H 05/20/20 05:19 Chloride 99.5 mmol/L (98-107) 05/20/20 05:19 Carbon Dioxide 21 mmol/L (22-30) L 05/20/20 05:19 Anion Gap 19 mmol/L 05/20/20 05:19 BUN 35 mg/dL (9-20) H 05/20/20 05:19 Creatinine 1.2 mg/dL (0.8-1.3) 05/20/20 05:19 Estimated GFR > 60 ml/min 05/20/20 05:19 BUN/Creatinine Ratio 29 % 05/20/20 05:19 Glucose 262 mg/dL (75-100) H 05/20/20 05:19 POC Glucose 213 mg/dL (70-105) H 05/21/20 11:26 Hemoglobin A1c 8.0 % (4-6) H 05/19/20 10:51 Calcium 8.2 mg/dL (8.4-10.2) L 05/20/20 05:19 Ferritin 162.1 ng/mL (30.0-300.0) 05/18/20 23:52 Total Bilirubin 2.50 mg/dL (0.1-1.2) H 05/18/20 22:41 AST 53 units/L (5-40) H 05/18/20 22:41 ALT 43 units/L (7-56) 05/18/20 22:41 Alkaline Phosphatase 88 units/L (35-129) 05/18/20 22:41 Lactate Dehydrogenase 333 units/L (91-180) H 05/18/20 23:52 Troponin T < 0.010 ng/mL (0.00-0.029) 05/18/20 22:41 C-Reactive Protein 13.40 mg/dL (0.00-1.30) H 05/18/20 23:52 NT-Pro-B Natriuret Pep 38.27 pg/mL (0-900) 05/18/20 22:41 Total Protein 7.2 g/dL (6.3-8.2) 05/18/20 22:41 Albumin 3.9 g/dL (3.9-5) 05/18/20 22:41 Albumin/Globulin Ratio 1.2 % 05/18/20 22:41 Procalcitonin 0.41 ng/mL (<0.15) 05/18/20 23:52 Coronavirus (PCR) Positive (Negative) A 05/19/20 Unknown Microbiology: Microbiology 05/18/20 23:47 Peripheral/Venous Blood Culture - Preliminary NO GROWTH AFTER 48 HOURS 05/18/20 23:52 Peripheral/Venous Blood Culture - Preliminary NO GROWTH AFTER 48 HOURS Villalobos/IV: Voiding Method Toilet IV Catheter Type [Right INT / Saline Lock Antecubital] Active Medications - Current Medications Current Medications: Generic Name Dose Route Start Last Admin Trade Name Freq PRN Reason Stop Dose Admin Acetaminophen 650 mg 05/19/20 18:49 Acetaminophen 325 Mg Tab PO Q4H PRN Pain MILD(1-3)/Fever >100.5/ZHANG Dexamethasone 6 mg 05/19/20 22:00 05/20/20 21:00 Dexamethasone 4 Mg/Ml Vial IV 05/28/20 22:01 6 mg Q24H JOSUE Administration Dextrose 50 ml 05/19/20 13:00 Dextrose 50% In Water (25gm) 50 Ml Syringe IV Q30MIN PRN Hypoglycemia Protocol Famotidine 20 mg 05/19/20 01:00 05/21/20 09:06 Famotidine 20 Mg Tab PO 20 mg BID JOSUE Administration Heparin Sodium (Porcine) 5,000 unit 05/19/20 00:45 05/21/20 05:14 Heparin 5,000 Unit/1 Ml Vial SUB-Q 05/22/20 23:59 5,000 unit Q8HR JOSUE Administration Azithromycin 500 mg in 250 mls @ 250 mls/hr 05/19/20 22:00 05/20/20 21:05 Zithromax/Ns IV 250 mls/hr Q24H JOSUE Administration Protocol Ceftriaxone Sodium 2 gm in 100 mls @ 200 mls/hr 05/19/20 22:00 05/20/20 21:05 Rocephin/Ns 2 Gm/100 Ml IV 200 mls/hr Q24H JOSUE Administration Protocol REMDESIVIR 100 mg/ Sodium 250 mls @ 500 mls/hr 05/22/20 21:00 Chloride IV 05/25/20 21:29 Q24HR@2100 JOSUE Insulin Glargine 10 units 05/19/20 22:00 05/20/20 23:50 Insulin Glargine 100 Units/Ml SUB-Q 10 units QHS JOSUE Administration Insulin Human Lispro 0 unit 05/19/20 07:30 05/21/20 11:58 Insulin Lispro 100 Unit/Ml Vial 3 Ml SUB-Q 4 unit ACHS [facility] Administration Protocol Sodium Chloride 50 ml 05/21/20 21:00 Sodium Chloride 0.9% 50 Ml Ivpb IV 05/25/20 21:01 Q24HR@2100 [facility] Nutrition/Malnutrition Assess - Dietary Evaluation Nutrition/Malnutrition Findings: Nutrition Notes Start: 05/19/20 10:17 Freq: Status: Active Protocol: Document 05/19/20 10:17 AB (Rec: 05/19/20 10:19 AB [id number]) Co-Sign 05/19/20 10:17 LP Nutrition Notes Need for Assessment generated from: MD Order,Education Initial or Follow up Brief Note Current Diagnosis Diabetes,Hypertension, Respiratory Failure Other Pertinent Diagnosis COVID-19 PUI, pneumonia Current Diet No diet ordered Subjective/Other Information MD order for diet education. Pt on hold in ED. Nutrition Intervention Follow-Up By: 05/23/20 Additional Comments F/U for full assessment and diet education needs
[2020-05-21 12:59] LABS: C-Reactive Protein 6.2 mg/dL (0.00-1.30)
[2020-05-21] MEDS: cefTRIAXone/NS 2 GM/100 ML 2 GM/100 ML BAG IV SCH (21:01)
[2020-05-21] MEDS: AZITHROMYCIN/NS 500 MG/250 ML 500 MG/250 ML BAG IV SCH (21:35)
[2020-05-21] MEDS: dexAMETHasone 4 MG/ML VIAL IV SCH (21:35)
[2020-05-21] MEDS: SODIUM CHLORIDE 0.9% 50 ML IVPB IV SCH (22:40)
[2020-05-21] MEDS: INSULIN GLARGINE 100 UNITS/ML SUB-Q SCH (22:47)
[2020-05-22] MEDS: HEPARIN 5,000 UNIT/1 ML VIAL SUB-Q SCH ×3 (05:14→21:29)
[2020-05-22 07:05] LABS: Alanine Aminotransferase 68 units/L (7-56); Albumin 3.2 g/dL (3.9-5); BUN/Creatinine Ratio 26; Blood Urea Nitrogen 23 mg/dL (9-20); Calcium 8.2 mg/dL (8.4-10.2); Hemolysis Index 1
[2020-05-22] MEDS ORDERED: SODIUM BICARB 8.4% 50 MEQ/50 ML SYRINGE IV NR (09:00)
--- NOTE | 2020-05-22 10:05 | Progress Note ---
Assessment and Plan Cultures: Blood culture no growth today Covid positive A/P: 65-year-old man past medical history hypertension, diabetes, high cholesterol #Severe COVID-19 pneumonia: Inflammatory markers elevated, improving. D-dimer is high. Procalcitonin slightly elevated. #Acute hypoxia: O2 sats dropped to 88%. Currently on 3 L. #SINA: Renally dose medications. Improving. #Diabetes: tight glycemic control for best outcomes. Recs: -Continue remdesivir for 5 days D2 of 5 -Continue dexamethasone for 10 days -Other inflammatory markers and repeat procalcitonin today -Follow renal function -Anticoagulation per protocol -Completed ceftriaxone and azithromycin Shelley Aggarwal MD [facility] ([facility]) Office [phone] Subjective Date of service: 05/22/20 Principal diagnosis: COVID-19 Interval history: Remains 3 L, no desaturation, no fever for 3 days. Objective - Exam Narrative Exam: Physical exam deferred to minimize COVID-19 transmission during pandemic. ER and internal medicine physical examination notes reviewed. - Constitutional Vitals: Vital Signs Temp Pulse Resp BP Pulse Ox 97.2 F L 71 20 119/71 94 05/22/20 04:55 05/22/20 04:55 05/22/20 04:55 05/22/20 04:55 05/22/20 04:55 Temperature -Last 24 Hours Temperature 97.2 F Temperature 99.5 F Temperature 97.7 F Temperature 97.8 F - Labs CBC & Chem 7: 05/20/20 05:19 05/22/20 05:29 Labs: Abnormal lab results 05/21/20 05/21/20 05/21/20 Range/Units 11:16 11:16 11:26 D-Dimer 268.68 H (0-234) ng/mlDDU Potassium (3.6-5.0) mmol/L Carbon Dioxide (22-30) mmol/L BUN (9-20) mg/dL Glucose (75-100) mg/dL POC Glucose 213 H (70-105) mg/dL Calcium (8.4-10.2) mg/dL AST (5-40) units/L ALT (7-56) units/L Lactate Dehydrogenase 299 H (91-180) units/L C-Reactive Protein 6.20 H (0.00-1.30) mg/dL Albumin (3.9-5) g/dL 05/21/20 05/21/20 05/22/20 Range/Units 17:38 21:44 05:29 D-Dimer (0-234) ng/mlDDU Potassium 5.3 H (3.6-5.0) mmol/L Carbon Dioxide 19 L (22-30) mmol/L BUN 23 H (9-20) mg/dL Glucose 259 H (75-100) mg/dL POC Glucose 118 H 132 H (70-105) mg/dL Calcium 8.2 L (8.4-10.2) mg/dL AST 56 H (5-40) units/L ALT 68 H (7-56) units/L Lactate Dehydrogenase (91-180) units/L C-Reactive Protein (0.00-1.30) mg/dL Albumin 3.2 L (3.9-5) g/dL 05/22/20 Range/Units 07:35 D-Dimer (0-234) ng/mlDDU Potassium (3.6-5.0) mmol/L Carbon Dioxide (22-30) mmol/L BUN (9-20) mg/dL Glucose (75-100) mg/dL POC Glucose 238 H (70-105) mg/dL Calcium (8.4-10.2) mg/dL AST (5-40) units/L ALT (7-56) units/L Lactate Dehydrogenase (91-180) units/L C-Reactive Protein (0.00-1.30) mg/dL Albumin (3.9-5) g/dL
[2020-05-22] MEDS: FAMOTIDINE 20 MG TAB PO SCH ×2 (10:31→21:29)
[2020-05-22] MEDS: SODIUM BICARBONATE 650 MG TAB PO SCH ×2 (10:31→21:29)
[2020-05-22] MEDS: INSULIN LISPRO 100 UNIT/ML VIAL 3 mL SUB-Q SCH ×4 (10:37→22:23)
--- NOTE | 2020-05-22 13:43 | Progress Note ---
Assessment and Plan Acute hypoxic respiratory failure -Due to Covid infection, patient is on oxygen support COVID-19 infection -ID was consulted and patient is on dexamethasone and remdesivir Diabetes mellitus with hyperglycemia -Basal and sliding scale insulin, ADA diet, Accu-Chek Elevated D-dimer -Patient is on anticoagulation based on hospital protocol -We will do bilateral lower extremity Doppler DVT Px, patient on heparin 05/21:continue inpatient care. 6-minute walk was done and his oxygen requirement was 4 L. We will keep the patient in the hospital and will check tomorrow. Patient is uninsured and may be difficult to get oxygen. 05/22: Continue dexamethasone and remdesivir. Wean off O2 as tolerated. Subjective Date of service: 05/22/20 Principal diagnosis: COVID-19 Interval history: Patient seen and examined. Medical records and medication list reviewed. No acute event overnight noted by the RN. Patient on 3L O2. Patient is tolerating diet. Discussed plan of care at bedside with patient. Objective - Exam Narrative Exam: Limited physical exam due to COVID-19 pandemic to minimize transmission of the disease. Vital reviewed and stable. GENERAL: well-developed well-nourished [place] male lying on bed appeared to be in no discomfort. HEENT: Normocephalic. Atraumatic. NECK: Supple. CHEST/LUNGS: breathing nonlabored. HEART/CARDIOVASCULAR: Heart rate stable on telemetry ABDOMEN: Visibly not distended SKIN: There is no rash NEURO: No focal motor deficit. Follows command. MUSCULOSKELETAL: No joint effusion EXTRIMITY: No swelling, no cyanosis or clubbing. PSYCH: Cooperative. - Constitutional Vitals: Vital Signs - 12hr 05/22/20 05/22/20 05/22/20 04:55 10:00 11:34 Temperature 97.2 F L 97.3 F L Pulse Rate 71 80 Respiratory 20 22 Rate Blood Pressure 119/71 151/84 O2 Sat by Pulse 94 94 95 Oximetry - Labs CBC & Chem 7: 05/20/20 05:19 05/24/20 04:24 Labs: Abnormal lab results 05/21/20 05/21/20 05/22/20 Range/Units 17:38 21:44 05:29 Potassium 5.3 H (3.6-5.0) mmol/L Carbon Dioxide 19 L (22-30) mmol/L BUN 23 H (9-20) mg/dL Glucose 259 H (75-100) mg/dL POC Glucose 118 H 132 H (70-105) mg/dL Calcium 8.2 L (8.4-10.2) mg/dL AST 56 H (5-40) units/L ALT 68 H (7-56) units/L Albumin 3.2 L (3.9-5) g/dL 05/22/20 05/22/20 Range/Units 07:35 11:32 Potassium (3.6-5.0) mmol/L Carbon Dioxide (22-30) mmol/L BUN (9-20) mg/dL Glucose (75-100) mg/dL POC Glucose 238 H 225 H (70-105) mg/dL Calcium (8.4-10.2) mg/dL AST (5-40) units/L ALT (7-56) units/L Albumin (3.9-5) g/dL HEART Score - HEART Score Troponin: Troponin T < 0.010 ng/mL (0.00-0.029) 05/18/20 22:41
--- NOTE | 2020-05-22 17:20 | Vascular Lab Report ---
DUPLEX DOPPLER LOWER EXTREMITY VEINS, BILATERAL INDICATION / CLINICAL INFORMATION: Covid, elevated D-dimer. TECHNIQUE: Duplex doppler imaging was performed through the veins of both lower extremities using venous christian tl and other maneuvers. COMPARISON: None available. FINDINGS: RIGHT COMMON FEMORAL VEIN: Negative. RIGHT FEMORAL VEIN: Negative. RIGHT POPLITEAL VEIN: Negative. RIGHT CALF VEINS: Negative. LEFT COMMON FEMORAL VEIN: Negative. LEFT FEMORAL VEIN: Negative. LEFT POPLITEAL VEIN: Negative. LEFT CALF VEINS: Negative. ADDITIONAL FINDINGS: None. IMPRESSION: 1. No sonographic evidence for DVT in either lower extremity. Signer Name: Dwaine Dasilva MD Signed: 05/22/2020 5:16 PM Workstation Name: [id number]
[2020-05-22] MEDS: SODIUM CHLORIDE 0.9% 50 ML IVPB IV SCH (21:29)
[2020-05-22] MEDS: REMDESIVIR 100 MG in SODIUM CHLORIDE 0.9% 250ML 250 ML IV SCH (21:29)
[2020-05-22] MEDS: dexAMETHasone 4 MG/ML VIAL IV SCH (21:43)
[2020-05-22] MEDS: INSULIN GLARGINE 100 UNITS/ML SUB-Q SCH (22:22)
[2020-05-23 05:57] LABS: Alanine Aminotransferase 61 units/L (7-56); Albumin 3.3 g/dL (3.9-5); BUN/Creatinine Ratio 26; Bilirubin,Direct 0.4 mg/dL (0-0.2); Blood Urea Nitrogen 23 mg/dL (9-20); Calcium 8.6 mg/dL (8.4-10.2); Hemolysis Index 8
--- NOTE | 2020-05-23 07:49 | Progress Note ---
Assessment and Plan Cultures: Blood culture no growth today Covid positive A/P: 65-year-old man past medical history hypertension, diabetes, high cholesterol #Severe COVID-19 pneumonia: Inflammatory markers elevated, improving. D-dimer is high. Procalcitonin slightly elevated, now better. #Acute hypoxia: O2 sats dropped to 88%. Worsening now on HFNC 15L #SINA: Renally dose medications. Improving. #Diabetes: tight glycemic control for best outcomes. Recs: -Continue remdesivir for 5 days D3 of 5 - started on05/21 -Continue dexamethasone for 10 days -Anticoagulation per protocol -Completed ceftriaxone and azithromycin Shelley Aggarwal MD [facility] ([facility]) Office [phone] Subjective Date of service: 05/23/20 Principal diagnosis: COVID-19 Interval history: Patient is now 15 L high flow, lowest sat 92%, no fever, no hypotension no acute events per nursing staff. Objective - Exam Narrative Exam: Physical exam deferred to minimize COVID-19 transmission during pandemic. ER and internal medicine physical examination notes reviewed. - Constitutional Vitals: Vital Signs Temp Pulse Resp BP Pulse Ox 97.7 F 68 18 129/74 95 05/23/20 04:35 05/23/20 04:35 05/23/20 04:35 05/23/20 04:35 05/23/20 04:35 Temperature -Last 24 Hours Temperature 97.7 F Temperature 98.2 F Temperature 98.0 F Temperature 97.3 F - Labs CBC & Chem 7: 05/20/20 05:19 05/23/20 04:39 Labs: Abnormal lab results 05/22/20 05/22/20 05/22/20 Range/Units 11:32 17:39 22:01 Sodium (137-145) mmol/L Potassium (3.6-5.0) mmol/L Carbon Dioxide (22-30) mmol/L BUN (9-20) mg/dL Glucose (75-100) mg/dL POC Glucose 225 H 140 H 150 H (70-105) mg/dL Direct Bilirubin (0-0.2) mg/dL ALT (7-56) units/L Albumin (3.9-5) g/dL 05/23/20 05/23/20 Range/Units 04:39 07:25 Sodium 136 L (137-145) mmol/L Potassium 5.8 H (3.6-5.0) mmol/L Carbon Dioxide 19 L (22-30) mmol/L BUN 23 H (9-20) mg/dL Glucose 249 H (75-100) mg/dL POC Glucose 237 H (70-105) mg/dL Direct Bilirubin 0.4 H (0-0.2) mg/dL ALT 61 H (7-56) units/L Albumin 3.3 L (3.9-5) g/dL
[2020-05-23] MEDS: INSULIN LISPRO 100 UNIT/ML VIAL 3 mL SUB-Q SCH ×4 (09:44→22:10)
[2020-05-23] MEDS: SODIUM BICARBONATE 650 MG TAB PO SCH ×2 (09:46→22:11)
[2020-05-23] MEDS: FAMOTIDINE 20 MG TAB PO SCH ×2 (09:46→22:11)
[2020-05-23] MEDS: DEXAMETHASONE 4 MG TAB PO SCH (12:52)
[2020-05-23] MEDS ORDERED: SODIUM POLYSTYRENE 15 GM/60 ML ORAL LIQD PO NR (13:40)
[2020-05-23] MEDS: CHOLECALCIFEROL (VIT D3) 5,000 UNIT TAB PO SCH (14:21)
--- NOTE | 2020-05-23 18:02 | Progress Note ---
Assessment and Plan Acute hypoxic respiratory failure -Due to Covid infection, patient is on oxygen support COVID-19 infection -ID was consulted and patient is on dexamethasone and remdesivir Diabetes mellitus with hyperglycemia -Basal and sliding scale insulin, ADA diet, Accu-Chek Elevated D-dimer -Patient is on anticoagulation based on hospital protocol -We will do bilateral lower extremity Doppler DVT Px, patient on heparin 05/21:continue inpatient care. 6-minute walk was done and his oxygen requirement was 4 L. We will keep the patient in the hospital and will check tomorrow. Patient is uninsured and may be difficult to get oxygen. 05/22: Continue dexamethasone and remdesivir. Wean off O2 as tolerated. 05/23: Continue dexamethasone, continue remdesivir day 3 today. Assess for home O2 requirement Subjective Date of service: 05/23/20 Principal diagnosis: COVID-19 Interval history: Patient seen and examined. Medical records and medication list reviewed. No acute event overnight noted by the RN. Patient on 3L O2. Patient is tolerating diet. Discussed plan of care at bedside with patient. Objective - Exam Narrative Exam: Limited physical exam due to COVID-19 pandemic to minimize transmission of the disease. Vital reviewed and stable. GENERAL: well-developed well-nourished [place] male lying on bed appeared to be in no discomfort. HEENT: Normocephalic. Atraumatic. NECK: Supple. CHEST/LUNGS: breathing nonlabored. HEART/CARDIOVASCULAR: Heart rate stable on telemetry ABDOMEN: Visibly not distended SKIN: There is no rash NEURO: No focal motor deficit. Follows command. MUSCULOSKELETAL: No joint effusion EXTRIMITY: No swelling, no cyanosis or clubbing. PSYCH: Cooperative. - Constitutional Vitals: Vital Signs - 12hr 05/23/20 05/23/20 05/23/20 08:27 09:29 11:00 Temperature 98.2 F Pulse Rate 74 Respiratory 20 Rate Blood Pressure 140/73 O2 Sat by Pulse 85 97 91 Oximetry 05/23/20 16:07 Temperature 97.4 F L Pulse Rate 80 Respiratory 22 Rate Blood Pressure 134/76 O2 Sat by Pulse 92 Oximetry - Labs CBC & Chem 7: 05/20/20 05:19 05/24/20 04:24 Labs: Abnormal lab results 05/22/20 05/23/20 05/23/20 Range/Units 22:01 04:39 07:25 Sodium 136 L (137-145) mmol/L Potassium 5.8 H (3.6-5.0) mmol/L Carbon Dioxide 19 L (22-30) mmol/L BUN 23 H (9-20) mg/dL Glucose 249 H (75-100) mg/dL POC Glucose 150 H 237 H (70-105) mg/dL Direct Bilirubin 0.4 H (0-0.2) mg/dL ALT 61 H (7-56) units/L Albumin 3.3 L (3.9-5) g/dL 05/23/20 05/23/20 Range/Units 12:04 16:10 Sodium (137-145) mmol/L Potassium (3.6-5.0) mmol/L Carbon Dioxide (22-30) mmol/L BUN (9-20) mg/dL Glucose (75-100) mg/dL POC Glucose 150 H 203 H (70-105) mg/dL Direct Bilirubin (0-0.2) mg/dL ALT (7-56) units/L Albumin (3.9-5) g/dL HEART Score - HEART Score Troponin: Troponin T < 0.010 ng/mL (0.00-0.029) 05/18/20 22:41
[2020-05-23] MEDS: SODIUM CHLORIDE 0.9% 50 ML IVPB IV SCH (22:10)
[2020-05-23] MEDS: REMDESIVIR 100 MG in SODIUM CHLORIDE 0.9% 250ML 250 ML IV SCH (22:10)
[2020-05-23] MEDS: INSULIN GLARGINE 100 UNITS/ML SUB-Q SCH (22:11)
[2020-05-23] MEDS: ASCORBIC ACID 500 MG TAB PO SCH (22:12)
[2020-05-23] MEDS: ZINC SULFATE 220 MG CAP PO SCH (22:12)
[2020-05-24 06:05] LABS: Alanine Aminotransferase 56 units/L (7-56); Albumin 3.5 g/dL (3.9-5); BUN/Creatinine Ratio 28; Bilirubin,Direct 0.4 mg/dL (0-0.2); Blood Urea Nitrogen 28 mg/dL (9-20); Hemolysis Index 0
--- NOTE | 2020-05-24 10:48 | Progress Note ---
Assessment and Plan Cultures: Blood culture no growth today Covid positive A/P: 65-year-old man past medical history hypertension, diabetes, high cholesterol #Severe COVID-19 pneumonia: Inflammatory markers elevated, improving. D-dimer is high. Procalcitonin slightly elevated, now better. Markers improving #Acute hypoxia: O2 sats dropped to 88%. Patient is now on 2 L. No desaturations overnight. #SINA: Renally dose medications. Improving. #Diabetes: tight glycemic control for best outcomes. Recs: -Continue remdesivir for 5 days D4 of 5 - started on05/21 -Continue dexamethasone for 10 days -Anticoagulation per protocol -Completed ceftriaxone and azithromycin -Consider 6 minutes walking test if passes okay to discharge Shelley Aggarwal MD [facility] ([facility]) Office [phone] Subjective Date of service: 05/24/20 Principal diagnosis: COVID-19 Interval history: Patient remains afebrile, now on 2 L nasal cannula, no acute events overnight. Objective - Exam Narrative Exam: Physical exam deferred to minimize COVID-19 transmission during pandemic. ER and internal medicine physical examination notes reviewed. - Constitutional Vitals: Vital Signs Temp Pulse Resp BP Pulse Ox 97.4 F L 66 18 120/71 96 05/24/20 04:27 05/24/20 04:27 05/24/20 08:57 05/24/20 04:27 05/24/20 08:03 Temperature -Last 24 Hours Temperature 97.4 F Temperature 97.5 F Temperature 97.4 F Temperature 98.2 F - Labs CBC & Chem 7: 05/20/20 05:19 05/24/20 04:24 Labs: Abnormal lab results 05/23/20 05/23/20 05/23/20 Range/Units 12:04 16:10 22:04 BUN (9-20) mg/dL Glucose (75-100) mg/dL POC Glucose 150 H 203 H 192 H (70-105) mg/dL Calcium (8.4-10.2) mg/dL Direct Bilirubin (0-0.2) mg/dL Albumin (3.9-5) g/dL 05/24/20 05/24/20 Range/Units 04:24 07:09 BUN 28 H (9-20) mg/dL Glucose 155 H (75-100) mg/dL POC Glucose 148 H (70-105) mg/dL Calcium 8.0 L (8.4-10.2) mg/dL Direct Bilirubin 0.4 H (0-0.2) mg/dL Albumin 3.5 L (3.9-5) g/dL
[2020-05-24] MEDS: INSULIN LISPRO 100 UNIT/ML VIAL 3 mL SUB-Q SCH ×4 (11:08→22:03)
[2020-05-24] MEDS: ASCORBIC ACID 500 MG TAB PO SCH ×2 (11:08→21:57)
[2020-05-24] MEDS: CHOLECALCIFEROL (VIT D3) 5,000 UNIT TAB PO SCH (11:08)
[2020-05-24] MEDS: DEXAMETHASONE 4 MG TAB PO SCH (11:08)
[2020-05-24] MEDS: SODIUM BICARBONATE 650 MG TAB PO SCH ×2 (11:08→21:57)
[2020-05-24] MEDS: ZINC SULFATE 220 MG CAP PO SCH ×2 (11:09→21:57)
[2020-05-24] MEDS: FAMOTIDINE 20 MG TAB PO SCH ×2 (11:10→21:57)
[2020-05-24 14:28] LABS: C-Reactive Protein 3.6 mg/dL (0.00-1.30)
--- NOTE | 2020-05-24 14:51 | Progress Note ---
Assessment and Plan Acute hypoxic respiratory failure -Due to COVID-19 infection, patient is on oxygen support COVID-19 infection -ID was consulted and patient is on dexamethasone and remdesivir Diabetes mellitus with hyperglycemia -Basal and sliding scale insulin, ADA diet, Accu-Chek Elevated D-dimer -Patient is on anticoagulation based on hospital protocol -We will do bilateral lower extremity Doppler DVT Px, patient on heparin 05/21:continue inpatient care. 6-minute walk was done and his oxygen requirement was 4 L. We will keep the patient in the hospital and will check tomorrow. Patient is uninsured and may be difficult to get oxygen. 05/22: Continue dexamethasone and remdesivir. Wean off O2 as tolerated. 05/23: Continue dexamethasone, continue remdesivir day 3 today. Assess for home O2 requirement 05/24: Day 4 of remdesivir today, if clinically stable possible DC home tomorrow with home O2 Subjective Date of service: 05/24/20 Principal diagnosis: COVID-19 Interval history: Patient seen and examined. Medical records and medication list reviewed. No acute event overnight noted by the RN. Patient on 3L O2. Patient is tolerating diet. Discussed plan of care at bedside with patient. Objective - Exam Narrative Exam: Limited physical exam due to COVID-19 pandemic to minimize transmission of the disease. Vital reviewed and stable. GENERAL: well-developed well-nourished [place] male lying on bed appeared to be in no discomfort. HEENT: Normocephalic. Atraumatic. NECK: Supple. CHEST/LUNGS: breathing nonlabored. HEART/CARDIOVASCULAR: Heart rate stable on telemetry ABDOMEN: Visibly not distended SKIN: There is no rash NEURO: No focal motor deficit. Follows command. MUSCULOSKELETAL: No joint effusion EXTRIMITY: No swelling, no cyanosis or clubbing. PSYCH: Cooperative. - Constitutional Vitals: Vital Signs - 12hr 05/24/20 05/24/20 05/24/20 04:27 08:03 08:57 Temperature 97.4 F L Pulse Rate 66 Respiratory 17 18 Rate Blood Pressure 120/71 O2 Sat by Pulse 93 96 Oximetry 05/24/20 11:47 Temperature 97.8 F Pulse Rate 76 Respiratory 18 Rate Blood Pressure 137/80 O2 Sat by Pulse 98 Oximetry - Labs CBC & Chem 7: 05/20/20 05:19 05/24/20 04:24 Labs: Abnormal lab results 05/23/20 05/23/20 05/24/20 Range/Units 16:10 22:04 04:24 D-Dimer (0-234) ng/mlDDU BUN 28 H (9-20) mg/dL Glucose 155 H (75-100) mg/dL POC Glucose 203 H 192 H (70-105) mg/dL Calcium 8.0 L (8.4-10.2) mg/dL Direct Bilirubin 0.4 H (0-0.2) mg/dL Lactate Dehydrogenase (91-180) units/L C-Reactive Protein (0.00-1.30) mg/dL Albumin 3.5 L (3.9-5) g/dL 05/24/20 05/24/20 05/24/20 Range/Units 07:09 11:51 13:26 D-Dimer 290.53 H (0-234) ng/mlDDU BUN (9-20) mg/dL Glucose (75-100) mg/dL POC Glucose 148 H 178 H (70-105) mg/dL Calcium (8.4-10.2) mg/dL Direct Bilirubin (0-0.2) mg/dL Lactate Dehydrogenase (91-180) units/L C-Reactive Protein (0.00-1.30) mg/dL Albumin (3.9-5) g/dL 05/24/20 Range/Units 13:26 D-Dimer (0-234) ng/mlDDU BUN (9-20) mg/dL Glucose (75-100) mg/dL POC Glucose (70-105) mg/dL Calcium (8.4-10.2) mg/dL Direct Bilirubin (0-0.2) mg/dL Lactate Dehydrogenase 297 H (91-180) units/L C-Reactive Protein 3.60 H (0.00-1.30) mg/dL Albumin (3.9-5) g/dL HEART Score - HEART Score Troponin: Troponin T < 0.010 ng/mL (0.00-0.029) 05/18/20 22:41
[2020-05-24] MEDS: SODIUM CHLORIDE 0.9% 50 ML IVPB IV SCH (21:48)
[2020-05-24] MEDS: REMDESIVIR 100 MG in SODIUM CHLORIDE 0.9% 250ML 250 ML IV SCH (21:48)
[2020-05-24] MEDS ORDERED: ENOXAPARIN 40 MG/0.4 ML INJ SUB-Q SCH (22:00)
[2020-05-24] MEDS: INSULIN GLARGINE 100 UNITS/ML SUB-Q SCH (22:02)
[2020-05-25 04:51] VITALS: BP 121/78
[2020-05-25] MEDS: INSULIN LISPRO 100 UNIT/ML VIAL 3 mL SUB-Q SCH (07:50)
--- NOTE | 2020-05-25 07:55 | Progress Note ---
Assessment and Plan Cultures: Blood culture no growth today Covid positive A/P: 65-year-old man past medical history hypertension, diabetes, high cholesterol #Severe COVID-19 pneumonia: Inflammatory markers elevated, improving. D-dimer is high improving. Procalcitonin slightly elevated, now better. Markers imp roving #Acute hypoxia: O2 sats dropped to 88%. Patient is now on 3 L. #SINA: Renally dose medications. Improving. #Diabetes: tight glycemic control for best outcomes. Recs: -Continue remdesivir for 5 days D5 of 5 - started on05/21 -Continue dexamethasone for 10 days -Anticoagulation per protocol -Completed ceftriaxone and azithromycin -Consider 6 minutes walking test if passes okay to discharge or consider home O2 Shelley Aggarwal MD [facility] ([facility]) Office [phone] Subjective Date of service: 05/25/20 Principal diagnosis: COVID-19 Interval history: Patient remains on 3 L, sats are at 95%, no acute events overnight. Objective - Exam Narrative Exam: Physical exam deferred to minimize COVID-19 transmission during pandemic. ER and internal medicine physical examination notes reviewed. - Constitutional Vitals: Vital Signs Temp Pulse Resp BP Pulse Ox 97.3 F L 70 17 121/78 96 05/25/20 04:23 05/25/20 04:23 05/25/20 04:23 05/25/20 04:23 05/25/20 04:23 Temperature -Last 24 Hours Temperature 97.3 F Temperature 97.0 F Temperature 98.2 F Temperature 97.8 F - Labs CBC & Chem 7: 05/20/20 05:19 05/24/20 04:24 Labs: Abnormal lab results 05/24/20 05/24/20 05/24/20 Range/Units 11:51 13:26 13:26 D-Dimer 290.53 H (0-234) ng/mlDDU POC Glucose 178 H (70-105) mg/dL Lactate Dehydrogenase 297 H (91-180) units/L C-Reactive Protein 3.60 H (0.00-1.30) mg/dL 05/24/20 05/24/20 05/25/20 Range/Units 16:27 21:07 07:48 D-Dimer (0-234) ng/mlDDU POC Glucose 220 H 213 H 114 H (70-105) mg/dL Lactate Dehydrogenase (91-180) units/L C-Reactive Protein (0.00-1.30) mg/dL
[2020-05-25] MEDS: FAMOTIDINE 20 MG TAB PO SCH (09:42)
[2020-05-25] MEDS: ASCORBIC ACID 500 MG TAB PO SCH (09:42)
[2020-05-25] MEDS: SODIUM BICARBONATE 650 MG TAB PO SCH (09:42)
[2020-05-25] MEDS: ZINC SULFATE 220 MG CAP PO SCH (09:42)
[2020-05-25] MEDS: CHOLECALCIFEROL (VIT D3) 5,000 UNIT TAB PO SCH (09:43)
[2020-05-25] MEDS: DEXAMETHASONE 4 MG TAB PO SCH (09:43)
--- NOTE | 2020-05-25 12:11 | Discharge Summary ---
Providers - Providers Date of Admission: 05/19/20 00:26 Date of discharge: 05/25/20 Attending physician: JEANNETTE MAHONEY 05/18/20 23:43 Consult to Physician [CONS] Urgent Comment: Consulting Provider: ASHA SYLVESTER Physician Instructions: Reason For Exam: b/l infiltrate, hypoxia, r/o covid 05/19/20 00:50 Consult to Dietitian/Nutrition [CONS] Routine Physician Instructions: Reason For Exam: Reason for Consult: Diet education [facility] Hospital[facility] Condition: Stable Hospital course: Daily course; 05/21:continue inpatient care. 6-minute walk was done and his oxygen requirement was 4 L. We will keep the patient in the hospital and will check tomorrow. Patient is uninsured and may be difficult to get oxygen. 05/22: Continue dexamethasone and remdesivir. Wean off O2 as tolerated. 05/23: Continue dexamethasone, continue remdesivir day 3 today. Assess for home O2 requirement 05/24: Day 4 of remdesivir today, if clinically stable possible DC home tomorrow with home O2 Discharge diagnosis: Acute hypoxic respiratory failure -Due to COVID-19 infection, patient is on oxygen support COVID-19 infection -ID was consulted and patient is on dexamethasone and remdesivir Diabetes mellitus with hyperglycemia -Basal and sliding scale insulin, ADA diet, Accu-Chek Elevated D-dimer -Patient is on anticoagulation based on hospital protocol -neg bilateral lower extremity Doppler DVT Px, patient on heparin Disposition: [id number] HOME UNDER HOME [facility] Time spent for discharge: 34 minutes Core Measure Documentation - Palliative Care Palliative Care/ Comfort Measures: Not Applicable - Core Measures Any of the following diagnoses?: none Exam - Physical Exam Narrative exam: Limited physical exam due to COVID-19 pandemic to minimize transmission of the disease. Vital reviewed and stable. GENERAL: well-developed well-nourished [place] male lying on bed appeared to be in no discomfort. HEENT: Normocephalic. Atraumatic. NECK: Supple. CHEST/LUNGS: breathing nonlabored. HEART/CARDIOVASCULAR: Heart rate stable on telemetry ABDOMEN: Visibly not distended SKIN: There is no rash NEURO: No focal motor deficit. Follows command. MUSCULOSKELETAL: No joint effusion EXTRIMITY: No swelling, no cyanosis or clubbing. PSYCH: Cooperative. - Constitutional Vitals: Temp Pulse Resp BP Pulse Ox 97.3 F L 70 17 121/78 96 05/25/20 04:23 05/25/20 04:23 05/25/20 04:23 05/25/20 04:23 05/25/20 10:20 Plan Activity: advance as tolerated Weight Bearing Status: Weight Bear as Tolerated Diet: diabetic Special Instructions: record blood sugar diary Follow up with: JR GRIFFITHS MD [Primary Care Provider] - 7 Days Prescriptions: dexAMETHasone [Dexamethasone] 6 mg PO DAILY #3 tablet Famotidine [Pepcid] 20 mg PO BID #14 tablet Ascorbic Acid [Vitamin C] 1,000 mg PO BID #14 tablet Zinc Sulfate 220 mg PO BID #14 capsule
[2020-05-25] MEDS ORDERED: REMDESIVIR 100 MG in SODIUM CHLORIDE 0.9% 250ML 250 ML IV SCH (16:00)
== END 2020-05-25 14:22 | disposition home or self-care (01) | DRG 177 ==
LOC: ED 20:44 → IMCU 05-19 00:26 → 3A 05-19 03:31
PROVIDERS: ADMIT Internal Medicine Geriatric Medicine; ATTEND Internal Medicine
PROC: XW033E5 Introduction of Remdesivir Anti-infective into Peripheral Vein, Percutaneous Approach, New Technology Group 5 (ICD-10-PCS; principal; 2020-05-21)
DX: U07.1 COVID-19 (principal); J96.01 Acute respiratory failure with hypoxia; J12.82 Pneumonia due to coronavirus disease 2019; N17.9 Acute kidney failure, unspecified; E78.00 Pure hypercholesterolemia, unspecified; E11.65 Type 2 diabetes mellitus with hyperglycemia; I10 Essential (primary) hypertension; Z79.899 Other long term (current) drug therapy; Z79.84 Long term (current) use of oral hypoglycemic drugs
CPT/HCPCS: 36415; 71045; 80048; 80053; 80076; 82728; 82947; 82962; 83036; 83615; 83880; 84145; 84484; 85007; 85025; 85379; 85610; 85730; 86140; 87040; 93005; 93970; 94640; 94760; G0378; J0456; J0696; J1100; J1644; J1650; J1815; J8540; U0003